=== PATIENT | male | born 1950 | race Caucasian/White ===

== ENCOUNTER → 2017-07-25 | Outpatient (CLI) | payer MEDICARE ==
[~2017-07-25] MED LIST: AMPI500C2 PO; CHOL200024 PO; CLON-365 PO; HYDR-3245 PO; LACT1CAP24 PO; SUMA100T4 PO; TRAZ150T62 PO
[2017-07-25 15:50] LABS: ALANINE AMINOTRANSFERASE 19 U/L (12-78); ANION GAP 6 mmol/L (5-15); CALCIUM 7.5 mg/dL (8.5-10.1); CHLORIDE 105 mmol/L (98-107); CREATININE 0.69 mg/dL (0.7-1.3)
[2017-07-25 15:52] LABS: ALKALINE PHOSPHATASE 200 U/L (45-117); BILIRUBIN,TOTAL 0.8 mg/dL (0.2-1.0)
== END ==
LOC: CFH 14:43
PROVIDERS: ATTEND Specialist
DX: Z51.11 Encounter for antineoplastic chemotherapy (principal); C25.1 Malignant neoplasm of body of pancreas
CPT/HCPCS: 36415; 80053

== ENCOUNTER → 2017-08-01 | Outpatient (CLI) | payer MEDICARE ==
[~2017-08-01] MED LIST changes: +OMNIPAQUE 350 MG/ML, 100ML BOTTLE ONE
== END ==
LOC: CFH 10:04
PROVIDERS: ATTEND Specialist
DX: C25.1 Malignant neoplasm of body of pancreas (principal); R18.8 Other ascites
CPT/HCPCS: 71260; 74177; Q9967

== ENCOUNTER 2017-08-28 08:07 | Day surgery (SDC) | payer MEDICARE ==
[~2017-08-28 08:07] MED LIST changes: -OMNIPAQUE 350 MG/ML, 100ML BOTTLE ONE
[2017-08-28] MEDS ORDERED: MORPHINE ER PO (08:43)
[2017-08-28] MEDS ORDERED: FENTANYL PF 100 MCG/2ML ONE ×2 (09:44→09:45)
[2017-08-28] MEDS ORDERED: FLUMAZENIL 0.1 MG/1 ML, 5ML ONE (09:45)
[2017-08-28] MEDS ORDERED: MIDAZOLAM 1 MG/ML, 2ML ONE ×2 (09:45)
[2017-08-28] MEDS ORDERED: NALOXONE 1 MG/ML, 2ML ONE (09:45)
[2017-08-28] MEDS ORDERED: LIDOCAINE 1%, 20ML ONE (09:52)
[2017-08-28] MEDS ORDERED: SODIUM CHLORIDE 0.9% 1,000 ML IV SCH (20:30)
== END 2017-08-28 12:40 ==
LOC: OUT 08:07
PROVIDERS: ATTEND Specialist
DX: C25.9 Malignant neoplasm of pancreas, unspecified (principal); K76.9 Liver disease, unspecified; G43.909 Migraine, unspecified, not intractable, without status migrainosus; Z98.890 Other specified postprocedural states; Z87.891 Personal history of nicotine dependence
CPT/HCPCS: 47000; 77012; 88307; 88313; 99156; 99157; J2250; J3010; J3490; J7030; 36415; 85610; J2310

== ENCOUNTER → 2017-12-14 | Outpatient (CLI) | payer MEDICARE ==
[~2017-12-14] MED LIST changes: +MORPHINE ER PO; +OMNIPAQUE 350 MG/ML, 100ML BOTTLE ONE
== END | disposition home or self-care (01) ==
LOC: CFH 08:19
PROVIDERS: ATTEND Specialist
DX: Z51.11 Encounter for antineoplastic chemotherapy (principal); C25.1 Malignant neoplasm of body of pancreas; M48.54XA Collapsed vertebra, not elsewhere classified, thoracic region, initial encounter for fracture
CPT/HCPCS: 71260; 74160; Q9967

== ENCOUNTER → 2018-02-04 | Outpatient (CLI) | payer MEDICARE ==
[~2018-02-04] MED LIST changes: -CLON-365 PO; +CLON1TAB4 PO
== END | disposition home or self-care (01) ==
LOC: CFH 07:24
PROVIDERS: ATTEND Specialist
DX: J98.11 Atelectasis (principal); J84.10 Pulmonary fibrosis, unspecified; K44.9 Diaphragmatic hernia without obstruction or gangrene; M48.54XA Collapsed vertebra, not elsewhere classified, thoracic region, initial encounter for fracture; C25.1 Malignant neoplasm of body of pancreas
CPT/HCPCS: 74177; 82565; Q9967

== ENCOUNTER 2018-02-14 08:07 | Day surgery (SDC) | payer MEDICARE ==
[~2018-02-14] VITALS: Ht 180.3 cm; Wt 60.8 kg
[~2018-02-14 08:07] MED LIST changes: -OMNIPAQUE 350 MG/ML, 100ML BOTTLE ONE
[2018-02-14] MEDS ORDERED: MORP-52 PO (08:55)
[2018-02-14] MEDS ORDERED: POLY17PO5 PO (08:55)
[2018-02-14] MEDS ORDERED: MORP100T27 PO (08:55)
[2018-02-14] MEDS ORDERED: MULT-6 PO (08:55)
[2018-02-14] MEDS ORDERED: CEFAZOLIN PMX 1GM/50ML 50 ML ONE (09:00)
[2018-02-14] MEDS ORDERED: SODIUM CHLORIDE 0.9% 1,000 ML IV SCH ×2 (09:00→09:07)
[2018-02-14] MEDS ORDERED: CEFAZOLIN PMX 1GM/50ML 50 ML IV ONE (09:00)
[2018-02-14 09:03] VITALS: BP 105/68
[2018-02-14] MEDS ORDERED: PLEASE ENTER HEIGHT AND WEIGHT MC SCH (09:30)
[2018-02-14] MEDS ORDERED: LIDOCAINE-MPF 2%, 2ML ONE ×2 (09:44→10:42)
[2018-02-14] MEDS ORDERED: FENTANYL PF 100 MCG/2ML ONE (09:48)
[2018-02-14] MEDS ORDERED: NALOXONE 1 MG/ML, 2ML ONE (09:48)
[2018-02-14] MEDS ORDERED: MIDAZOLAM 1 MG/ML, 5ML ONE (09:48)
[2018-02-14] MEDS ORDERED: FLUMAZENIL 0.1 MG/1 ML, 5ML ONE (09:48)
[2018-02-14] MEDS ORDERED: PROMETHAZINE 25 MG/ML, 1ML ONE (09:53)
[2018-02-14] MEDS ORDERED: MEPERIDINE/PF 50 MG/ML ONE (09:53)
== END 2018-02-14 17:15 | disposition home or self-care (01) ==
LOC: OUT 08:07
PROVIDERS: ATTEND Specialist
DX: M84.58XA Pathological fracture in neoplastic disease, other specified site, initial encounter for fracture (principal); C61 Malignant neoplasm of prostate; Z98.890 Other specified postprocedural states; Z79.899 Other long term (current) drug therapy; Z87.891 Personal history of nicotine dependence; Z85.07 Personal history of malignant neoplasm of pancreas
CPT/HCPCS: 22513; 22515; 99156; 99157; J0690; J2175; J2250; J2550; J3010; J3490; J7030; 22512; J2310

== ENCOUNTER → 2018-04-29 | Outpatient (CLI) | payer MEDICARE ==
[~2018-04-29] MED LIST changes: +CLON1TAB11 PO; -CLON1TAB4 PO; +MORP-52 PO; +MORP100T27 PO; +MULT-6 PO; +OMNIPAQUE 350 MG/ML, 100ML BOTTLE ONE; +POLY17PO5 PO
== END | disposition home or self-care (01) ==
LOC: CFH 07:47
PROVIDERS: ATTEND Specialist
DX: J98.11 Atelectasis (principal); I81 Portal vein thrombosis
CPT/HCPCS: 71260; 74160; Q9967